=== PATIENT | male | born 1990 | race Caucasian/White ===

== ENCOUNTER 2017-06-15 19:06 | Emergency (ER) | payer OTHER ==
--- NOTE | 2017-06-15 19:20 | EDM.PDOC ---
ED HPI GENERAL MEDICAL PROBLEM - General Chief Complaint: ENT Problem Stated Complaint: PAIN EYES/COUGH/SORE THROAT Time Seen by Provider: 06/15/17 19:18 Source of Information: Reports: Patient - History of Present Illness INITIAL COMMENTS - FREE TEXT/NARRATIVE: HISTORY AND PHYSICAL: History of present illness: [ Patient presents with cough for 2 weeks along with sore throat for 2 weeks which has been improvement but continues to be a problem however no muffled voice trismus or drooling from the sore throat standpoint is taking solid foods without difficulty as well as liquids cough has been persistent and keeps him awake at night patient is secondary complaint of conjunctivitis no sinus tenderness Intermittent fever no chills sweats no chest pain shortness breath headache dizziness palpitation about a urine symptoms ] Review of systems: As per history of present illness and below otherwise all systems reviewed and negative. Past medical history: As per history of present illness and as reviewed below otherwise noncontributory. Surgical history: As per history of present illness and as reviewed below otherwise noncontributory. Social history: No reported history of drug or alcohol abuse. Family history: As per history of present illness and as reviewed below otherwise noncontributory. Physical exam: HEENT: Atraumatic, normocephalic, pupils reactive, negative for conjunctival pallor or scleral icterus, mucous membranes moist, throat clear, neck supple, nontender, trachea midline. Moderate erythema of oropharynx no exudates no meningeal sign some exudates in his lashes that are drying crusty states that his eyes are matted shut in the morning no sinus tenderness Lungs: Clear to auscultation, breath sounds equal bilaterally, chest nontender. Heart: S1S2, regular, negative for clicks, rubs, or JVD. Abdomen: Soft, nondistended, nontender. Negative for masses or hepatosplenomegaly. Negative for costovertebral tenderness. Pelvis: Stable nontender. Genitourinary: Deferred. Rectal: Deferred. Extremities: Atraumatic, negative for cords or calf pain. Neurovascular unremarkable. Neuro: Awake, alert, oriented. Cranial nerves II through XII unremarkable. Cerebellum unremarkable. Motor and sensory unremarkable throughout. Exam nonfocal. Diagnostics: [Chest 2 views Influenza Strep ] Therapeutics: [Z-Leonardo 250 mg HFA Gent ophthalmic ] Impression: [Acute bronchitis Pharyngitis] Conjunctivitis Definitive disposition and diagnosis as appropriate pending reevaluation and review of above. throat Pain Score (Numeric/FACES): 9 - Related Data Allergies Allergy/AdvReac Type Severity Reaction Status Date / Time No Known Allergies Allergy Verified 06/15/17 19:09 Home Meds: Home Meds . [No Known Home Meds] 06/15/17 [History] ED ROS GENERAL - Review of Systems Review Of Systems: ROS reveals no pertinent complaints other than HPI. ED EXAM, GENERAL - Physical Exam Exam: See Below Course - Vital Signs Last Recorded V/S: Last Vital Signs Temp 100.3 F 06/15/17 19:06 Pulse 85 06/15/17 19:06 Resp 18 06/15/17 19:06 BP 134/83 06/15/17 19:06 Pulse Ox 95 06/15/17 19:06 - Orders/Labs/Meds Orders: Active Orders 24 hr Category Date Time Status Chest 2V [CR] Stat Exams 06/15/17 20:00 Taken CULTURE STREP A CONFIRMATION [RM] Stat Lab 06/15/17 19:25 Results STREP SCRN A RAPID W CULT CONF [RM] Stat Lab 06/15/17 19:25 Results Departure - Departure Time of Disposition: 20:25 Disposition: Home, Self-Care 01 Condition: Good Clinical Impression: Acute bronchitis, Pharyngitis - Discharge Information Referrals: PCP,None [Primary Care Provider] - Forms: ED Department Discharge Additional Instructions: The following information is given to patients seen in the emergency department who are being discharged to home. This information is to outline your options for follow-up care. We provide all patients seen in our emergency department with a follow-up referral. The need for follow-up, as well as the timing and circumstances, are variable depending upon the specifics of your emergency department visit. If you don't have a primary care physician on staff, we will provide you with a referral. We always advise you to contact your personal physician following an emergency department visit to inform them of the circumstance of the visit and for follow-up with them and/or the need for any referrals to a consulting specialist. The emergency department will also refer you to a specialist when appropriate. This referral assures that you have the opportunity for follow-up care with a specialist. All of these measure are taken in an effort to provide you with optimal care, which includes your follow-up. Under all circumstances we always encourage you to contact your private physician who remains a resource for coordinating your care. When calling for follow-up care, please make the office aware that this follow-up is from your recent emergency room visit. If for any reason you are refused follow-up, please contact the [facility] emergency department at and asked to speak to the emergency department charge nurse. - My Orders Last 24 Hours: My Active Orders 06/15/17 19:25 CULTURE STREP A CONFIRMATION [RM] Stat STREP SCRN A RAPID W CULT CONF [RM] Stat 06/15/17 20:00 Chest 2V [CR] Stat - Assessment/Plan Last 24 Hours: My Active Orders 06/15/17 19:25 CULTURE STREP A CONFIRMATION [RM] Stat STREP SCRN A RAPID W CULT CONF [RM] Stat 06/15/17 20:00 Chest 2V [CR] Stat
--- NOTE | 2017-06-16 08:54 | CR ---
EXAM DATE: 06/15/17 PATIENT'S AGE: 27 Patient: MONTANA CHEEMA Facility: [place], [place] Site . Site : 1990 Study: XRay Chest [id number] 8:21:36 PM Ordering Physician: Calvin Cadet Final Report: INDICATION: Chest pain, shortness of breath. TECHNIQUE: Chest radiograph 2 views COMPARISON: None FINDINGS: Cardiovascular and mediastinum: The heart silhouette is normal in size and morphology. The mediastinum is normal in appearance. Lungs and pleural spaces: Both lungs are unremarkable in appearance. No sign of pleural effusion seen. No pneumothorax is identified. Bones and soft tissues: No significant findings. IMPRESSION: 1. No acute cardiopulmonary disease is seen. Dictated by Alexys Maldonado MD @ 06/15/2017 8:40:42 PM Dictated by: Alexys Maldonado MD @ 06/15/2017 20:40:48 (Electronic Signature) Report Signed by Proxy. [facility]
== END 2017-06-15 20:13 | disposition home or self-care (01) ==
LOC: MW.ED 19:06
DX: J20.9 Acute bronchitis, unspecified (principal); J02.9 Acute pharyngitis, unspecified; H10.9 Unspecified conjunctivitis
CPT/HCPCS: 71046; 71046-26; 87081; 87804; 87880; 99283

== ENCOUNTER 2017-12-10 09:54 | Emergency (ER) | payer OTHER ==
[2017-12-10] MEDS ORDERED: Diphtheria,Pertussis(Acell),Tetanus Vaccine 0.5 ML Syringe IM ONE (10:10)
--- NOTE | 2017-12-10 10:16 | EDM.PDOC ---
ED HPI GENERAL MEDICAL PROBLEM - General Chief Complaint: Laceration Stated Complaint: CUT OVER RT EYE Time Seen by Provider: 12/10/17 10:11 Source of Information: Reports: Patient History Limitations: Reports: No Limitations - History of Present Illness INITIAL COMMENTS - FREE TEXT/NARRATIVE: HISTORY AND PHYSICAL: []27-year-old male presents with a laceration to the side of his face History of Present Illness: []Patient missed a step last night striking his face on the side of the step. A one and half centimeter laceration is present. Review of Systems: As per history of present illness and below otherwise all systems reviewed and negative. Past medical history: As per history of present illness and as reviewed below otherwise noncontributory. Surgical history: As per history of present illness and as reviewed below otherwise noncontributory. Social history: No reported history of drug or alcohol abuse. Family history: As per history of present illness and as reviewed below otherwise noncontributory. Physical exam: Home and neurologically intact answering questions appropriately in full sentences without any shortness of breath. He is nontoxic in appearance. HEENT: Atraumatic, normocehpalic, pupils reactive, negative for conjunctival pallor or scleral icterus, mucous membranes moist, throat clear, neck supple, nontender, trachea midline. Laceration present just above the corner of his right eye. This is clean in appearance his eye is not affected he has full range of motion and good vision Lungs: Clear to auscultation, breath sounds equal bilaterally, chest non tender. Heart: S1S2, regular, negative for clicks, rubs, or JVD. Abdomen: Soft, nondistended, nontender. Negative for masses or hepatossplenmegaly. Negative for costovertebral tenderness. Pelvis: Stable nontender. Genitourinary: Deferred. Rectal: Deferred Extremities: Atraumatic, negative for cords or calf pain. Neurovascular unremarkable. Neuro: Awake, alert, oriented. Cranial nerves II through XII unremarkable. Cerebellum unremarkable. Motor and sensory unremarkable throughout. Exam nonfocal. Discussed with the patient that the timeframe of 14-15 hours later was too late to close this with sutures and Steri-Strips will be applied he needs to leave these in place is agreeable to this recommended course of action tetanus vaccine will be given Diagnostics: [] Therapeutics: []Steri-Strips Adacel Impression: []Laceration with repair Plan: [] Discharge home Tylenol for discomfort Leave Steri-Strips in place for at least 4 days Do not pull off the Steri-Strips Follow-up with your primary care Return to the emergency department as directed and discussed Definitive disposition and diagnosis as appropriate pending reevaluation and review of above. Onset: Sudden Duration: Hour(s): (15) Location: Reports: Face Quality: Reports: Ache Severity: Moderate Improves with: Reports: None Worsens with: Reports: None Associated Symptoms: Reports: No Other Symptoms Treatments PROCUREMENT COORDINATOR: Reports: Dressing(s) - Related Data Allergies Allergy/AdvReac Type Severity Reaction Status Date / Time No Known Allergies Allergy Verified 12/10/17 10:04 Home Meds: Home Meds . [No Known Home Meds] 06/15/17 [History] Past Medical History - Past Health History Medical/Surgical History: Denies Medical/Surgical History - Past Surgical History Musculoskeletal Surgical History: Reports: Other (See Below) Other Musculoskeletal Surgeries/Procedures:: left knee sx Social & Family History - Family History Family Medical History: Noncontributory - Caffeine Use Caffeine Use: Reports: Coffee ED ROS GENERAL - Review of Systems Review Of Systems: ROS reveals no pertinent complaints other than HPI. ED EXAM, SKIN/RASH Exam: See Below (see dictation) ED SKIN PROCEDURES - Laceration/Wound Repair Right Lateral Face Lac/Wound length In cm: 1.5 Appearance: Superficial, Clean Distal NVT: Neuro & Vascular Intact, No Tendon Injury Exploration/Debridement/Repair: Wound Explored Closed with: Steri-Strips Sterile Dressing Applied: Nurse Tetanus Status Addressed: Yes Complications: No Course - Vital Signs Last Recorded V/S: Last Vital Signs Temp 36.3 C 12/10/17 10:06 Pulse 68 12/10/17 10:06 Resp 14 12/10/17 10:06 BP 138/75 12/10/17 10:06 Pulse Ox 98 12/10/17 10:06 - Orders/Labs/Meds Orders: Active Orders 24 hr Category Date Time Status Vaccines to be Administered [RC] PER UNIT ROUTINE Care 12/10/17 10:10 Ordered Diphth,Pertuss(Acell),Tet Vac [Adacel] Med 12/10/17 10:10 Once 0.5 ml IM .ONCE ONE Departure - Departure Time of Disposition: 10:17 Disposition: Home, Self-Care 01 Condition: Good Clinical Impression: Laceration - Discharge Information Instructions: Laceration Care, Adult, [id number] Referrals: PCP,None [Primary Care Provider] - Additional Instructions: The following information is given to patients seen in the emergency department who are being discharged to home. This information is to outline your options for follow-up care. We provide all patients seen in our emergency department with a follow-up referral. The need for follow-up, as well as the timing and circumstances, are variable depending upon the specifics of your emergency department visit. If you don't have a primary care physician on staff, we will provide you with a referral. We always advise you to contact your personal physician following an emergency department visit to inform them of the circumstance of the visit and for follow-up with them and/or the need for any referrals to a consulting specialist. The emergency department will also refer you to a specialist when appropriate. This referral assures that you have the opportunity for followup care with a specialist. All of these measure are taken in an effort to provide you with optimal care, which includes your followup. Under all circumstances we always encourage you to contact your private physician who remains a resource for coordinating your care. When calling for followup care, please make the office aware that this follow-up is from your recent emergency room visit. If for any reason you are refused follow-up, please contact the [facility] emergency department at and asked to speak to the emergency department charge nurse. The Steri-Strips on until they fall off by themselves you can trim off the edges try to have this in place for at least 4 days He received a tetanus vaccine you should be good for another 10 years Follow-up with your primary care provider If you experience any worsening of symptoms any changes in mental status signs of infection heat redness pustular material return to the emergency room over the weekend for reevaluation - My Orders Last 24 Hours: My Active Orders 12/10/17 10:10 Vaccines to be Administered [RC] PER UNIT ROUTINE Diphth,Pertuss(Acell),Tet Vac [Adacel] 0.5 ml IM .ONCE ONE - Assessment/Plan Last 24 Hours: My Active Orders 12/10/17 10:10 Vaccines to be Administered [RC] PER UNIT ROUTINE Diphth,Pertuss(Acell),Tet Vac [Adacel] 0.5 ml IM .ONCE ONE
== END 2017-12-10 10:34 | disposition home or self-care (01) ==
LOC: MW.ED 09:54
DX: S01.111A Laceration without foreign body of right eyelid and periocular area, initial encounter (principal); W18.00XA Striking against unspecified object with subsequent fall, initial encounter; Z23 Encounter for immunization
CPT/HCPCS: 90471; 90715; 99282-25